=== PATIENT | female | born 1995 | race Caucasian/White ===

== ENCOUNTER → 2016-10-04 | Outpatient (CLI) | payer BC ==
--- NOTE | 2016-10-04 16:51 | REP ---
KUB: Single view. History: Abdominal tenderness. Constipation. Findings: Single view of the abdomen demonstrates a normal bowel gas pattern. Air and stool is seen in a nondistended colon. Psoas margins and flank stripes are intact. No mass, organomegaly or pathologic calcification is seen. Umbilical jewelry is noted incidentally. Impression: Negative KUB. Signed by Ravi Galvan MD 10/04/2016 06:54 P
== END ==
LOC: M WUC 16:04
PROVIDERS: ATTEND Physician Assistant
DX: K59.00 Constipation, unspecified (principal); R10.816 Epigastric abdominal tenderness